=== PATIENT | female | born 1955 | race Caucasian/White ===

== ENCOUNTER 2018-06-01 15:07 | Emergency (ER) | payer BC ==
[2018-06-01 15:18] VITALS: RESP 18
[2018-06-01 15:47] LABS: Basophils % (A) 0 %; Eosinophils # (A) 0.2 k/uL (0-0.7); Eosinophils % (A) 2 %; HGB 16.2 gm/dL (11.4-16.0); Lymphocytes # (A) 1.1 k/uL (1.0-4.8); Lymphocytes % (A) 14 %; MCH 29.8 pg (25.0-35.0); MCHC 33.2 g/dL (31.0-37.0); MCV 89.9 fL (80.0-100.0); Mean Platelet Volume 6.4; Monocytes # (A) 0.4 k/uL (0-1.0); Monocytes % (A) 5 %; Neutrophils # (A) 6.5 k/uL (1.3-7.7); Neutrophils % (A) 78 %; Platelet Count 160 k/uL (150-450); RBC 5.45 m/uL (3.80-5.40); RDW 13.8 % (11.5-15.5); WBC 8.3 k/uL (3.8-10.6)
[2018-06-01 15:49] LABS: Appearance,Urine Clear (Clear); Bilirubin,Urine Negative (Negative); Blood,Urine Negative (Negative); Color,Urine Yellow; Glucose,Urine (UA) Negative (Negative); Ketones,Urine Negative (Negative); Leukocyte Esterase,Urine Negative (Negative); Nitrite,Urine Negative (Negative); PH, Urine 6.5 (5.0-8.0); Protein,Urine Negative (Negative); Specific Gravity,Urine 1.015 (1.001-1.035); Urobilinogen,Urine <2.0 mg/dL (<2.0)
[2018-06-01 16:00] LABS: ALT 81 U/L (9-52); AST 36 U/L (14-36); Albumin 3.6 g/dL (3.5-5.0); Alkaline Phosphatase 64 U/L (38-126); Amylase 67 U/L (30-110); Anion Gap 6 mmol/L; Blood Urea Nitrogen 17 mg/dL (7-17); Calcium 9.3 mg/dL (8.4-10.2); Carbon Dioxide 29 mmol/L (22-30); Chloride 103 mmol/L (98-107); Glucose 119 mg/dL (74-99); Lipase 78 U/L (23-300); Potassium 4.3 mmol/L (3.5-5.1); Sodium 138 mmol/L (137-145); Total Bilirubin 0.7 mg/dL (0.2-1.3); Total Protein 6.3 g/dL (6.3-8.2)
--- NOTE | 2018-06-01 17:42 | ED ---
General Adult HPI - General Chief complaint: Abdominal Pain Stated complaint: poss kidney stone Time Seen by Provider: 06/01/18 17:31 Source: patient, RN notes reviewed Mode of arrival: ambulatory Limitations: no limitations - History of Present Illness Initial comments: Patient 62-year-old female significant past medical history for kidney stones, presented to the emergency room today with a chief complaint of a flank pain to the right side. Patient states that started 3 days ago and this feels similar to kidney stones that she's had in the past. She called her urologist advised to come here to the emergency room. Patient believes that she saw some hematuria a few days ago. She has mid that she's felt nauseated. She currently rates her pain 8/10. Denies any other complaints or symptoms. Patient denies any recent fever, chills, shortness of breath, chest pain, numbness or tingling, dysuria, constipation or diarrhea, headaches or visual changes, or any other complaints. - Related Data Previous Rx's Medication Instructions Recorded Ciprofloxacin HCl [Cipro] 500 mg PO Q12HR #20 day 06/01/18 metroNIDAZOLE [Flagyl] 500 mg PO TID #21 tab 06/01/18 Allergies Allergy/AdvReac Type Severity Reaction Status Date / Time adhesive tape Allergy Unknown Verified 06/01/18 15:18 ibuprofen Allergy Unknown Verified 06/01/18 15:18 iron Allergy Unknown Verified 06/01/18 15:18 Sulfa (Sulfonamide Allergy Unknown Verified 06/01/18 15:18 Antibiotics) Review of Systems ROS Statement: Those systems with pertinent positive or pertinent negative responses have been documented in the HPI. ROS Other: All systems not noted in ROS Statement are negative. Past Medical History Past Medical History: Hyperlipidemia, Thyroid Disorder History of Any Multi-Drug Resistant Organisms: None Reported Past Surgical History: Hernia Repair Additional Past Surgical History / Comment(s): lithotripsy Past Psychological History: No Psychological Hx Reported Smoking Status: Never smoker Past Alcohol Use History: None Reported Past Drug Use History: None Reported General Exam - General Exam Comments Initial Comments: General: The patient is awake and alert, in no distress, and does not appear acutely ill. Eye: Pupils are equal, round and reactive to light, extra-ocular movements are intact. No nystagmus. There is normal conjunctiva bilaterally. No signs of icterus. Ears, nose, mouth and throat: There are moist mucous membranes and no oral lesions. Neck: The neck is supple, there is no tenderness or JVD. Cardiovascular: There is a regular rate and rhythm. No murmur, rub or gallop is appreciated. Respiratory: Lungs are clear to auscultation, respirations are non-labored, breath sounds are equal. No wheezes, stridor, rales, or rhonchi. Gastrointestinal: Soft, non-distended, non-tender abdomen without masses or organomegaly noted. There is no rebound or guarding present. No CVA tenderness. Musculoskeletal: Normal ROM, no tenderness. Strength 5/5. Sensation intact. Pulses equal bilaterally 2+. Neurological: A&O x 3. CN II-XII intact, There are no obvious motor or sensory deficits. Coordination appears grossly intact. Speech is normal. Skin: Skin is warm and dry and no rashes or lesions are noted. Psychiatric: Cooperative, appropriate mood & affect, normal judgment. Limitations: no limitations Course Vital Signs 06/01/18 15:14 Temperature 99.0 F Pulse Rate 84 Respiratory 18 Rate Blood Pressure 140/72 O2 Sat by Pulse 94 L Oximetry Medical Decision Making - Medical Decision Making Patient reexamined at this time shows no signs of distress resting comfortably. Her CT of the abdomen and pelvis does show a nephrolithiasis 3 mm. Does show evidence for sigmoid diverticulitis. Does show possible infiltrate in the left lower lobe. Patient did have upper respiratory infection a week ago. Patient has had some looser stools. Patient will be started on antibiotics of Cipro and Flagyl here in emergency room and discharged home to follow-up with family doctor tomorrow. Advised patient to return if there is any fever or increase worsen symptoms. She states understanding and is in agreement. - Lab Data Result diagrams: 06/01/18 15:37 06/01/18 15:37 Lab Results 06/01/18 06/01/18 06/01/18 Range/Units 15:37 15:37 15:37 WBC 8.3 (3.8-10.6) k/uL RBC 5.45 H (3.80-5.40) m/uL Hgb 16.2 H (11.4-16.0) gm/dL Hct 49.0 H (34.0-46.0) % MCV 89.9 (80.0-100.0) fL MCH 29.8 (25.0-35.0) pg MCHC 33.2 (31.0-37.0) g/dL RDW 13.8 (11.5-15.5) % Plt Count 160 (150-450) k/uL Neutrophils % 78 % Lymphocytes % 14 % Monocytes % 5 % Eosinophils % 2 % Basophils % 0 % Neutrophils # 6.5 (1.3-7.7) k/uL Lymphocytes # 1.1 (1.0-4.8) k/uL Monocytes # 0.4 (0-1.0) k/uL Eosinophils # 0.2 (0-0.7) k/uL Basophils # 0.0 (0-0.2) k/uL Sodium 138 (137-145) mmol/L Potassium 4.3 (3.5-5.1) mmol/L Chloride 103 (98-107) mmol/L Carbon Dioxide 29 (22-30) mmol/L Anion Gap 6 mmol/L BUN 17 (7-17) mg/dL Creatinine 0.80 (0.52-1.04) mg/dL Est GFR (CKD-EPI)AfAm >90 (>60 ml/min/1.73 sqM) Est GFR (CKD-EPI)NonAf 80 (>60 ml/min/1.73 sqM) Glucose 119 H (74-99) mg/dL Calcium 9.3 (8.4-10.2) mg/dL Total Bilirubin 0.7 (0.2-1.3) mg/dL AST 36 (14-36) U/L ALT 81 H (9-52) U/L Alkaline Phosphatase 64 (38-126) U/L Total Protein 6.3 (6.3-8.2) g/dL Albumin 3.6 (3.5-5.0) g/dL Amylase 67 (30-110) U/L Lipase 78 (23-300) U/L Urine Color Yellow Urine Appearance Clear (Clear) Urine pH 6.5 (5.0-8.0) Ur Specific [place] 1.015 (1.001-1.035) Urine Protein Negative (Negative) Urine Glucose (UA) Negative (Negative) Urine Ketones Negative (Negative) Urine Blood Negative (Negative) Urine Nitrite Negative (Negative) Urine Bilirubin Negative (Negative) Urine Urobilinogen <2.0 (<2.0) mg/dL Ur Leukocyte Esterase Negative (Negative) Disposition Clinical Impression: Sigmoid diverticulitis Disposition: HOME SELF-CARE Condition: Good Instructions: Diverticulitis (ED) Additional Instructions: Please use medication as discussed. Please follow-up with family doctor in the next 2 days of symptoms have not improved. Please return to emergency room if the symptoms increase or worsen or for any other concerns. Prescriptions: Ciprofloxacin HCl [Cipro] 500 mg PO Q12HR #20 day metroNIDAZOLE [Flagyl] 500 mg PO TID #21 tab Is patient prescribed a controlled substance at d/c from ED?: No Referrals: Gaudencio Ojeda DO [Primary Care Provider] - 1-2 days Time of Disposition: 18:43
--- NOTE | 2018-06-01 18:24 | CT ---
EXAMINATION TYPE: CT abdomen pelvis wo con DATE OF EXAM: 06/01/2018 COMPARISON: 09/01/2013 HISTORY: Right sided flank pain CT DLP: 566 mGycm Automated exposure control for dose reduction was used. TECHNIQUE: Helical acquisition of images was performed from the lung bases through the pelvis. FINDINGS: There is a 1.5 cm noncalcified nodule in the right lower lobe adjacent to the major fissure. There ar e other smaller nodular densities in the right lower lobe that measure less than 1 cm. There is patch y linear infiltrate at the posterior lung bases. There is no pleural effusion. There is no pericardia l effusion. There is fatty infiltration of the liver. There is 2 cm rounded area of increased density in the late ral right lobe of the liver that could be hemangioma. Spleen appears normal. There is no pancreatic m ass. There calcified gallstones. There is no adrenal mass. Kidneys have normal size and contour. There is no hydronephrosis. There is no retroperitoneal adenopathy. There is inflammatory changes around the mid sigmoid colon with multip le diverticula. There is fat stranding. Bladder distends smoothly. Uterus is anteverted. There is sma ll umbilical hernia that contains fat. There are spondylotic changes in the lumbar spine. There are m ultiple diverticula in the right colon. IMPRESSION: CHOLELITHIASIS. FATTY INFILTRATION OF THE LIVER. INFILTRATES AND ATELECTASIS AT THE LUNG BASES WITH R IGHT LOWER LOBE PULMONARY NODULES. COLONIC DIVERTICULOSIS. THERE IS EVIDENCE OF DIVERTICULITIS IN THE MID SIGMOID COLON THAT IS NEW COMPARED TO OLD EXAM. THERE IS CLEARING OF THE RIGHT RENAL OBSTRUCTION COMPARED TO OLD EXAM. NONOBSTRUCTING SMALL BILATERAL RENAL CALCULI MEASURE UP TO 3 MM.
[2018-06-01] MEDS ORDERED: metroNIDAZOLE 500 MG TAB PO STA (18:43)
[2018-06-01] MEDS ORDERED: CIPROFLOXACIN HCL 500 MG TAB PO STA (18:43)
[2018-06-01 19:09] VITALS: BP 125/66; PULSE 75; TEMP 97
== END 2018-06-01 19:09 | disposition home or self-care (01) ==
LOC: EC 15:07
DX: K57.32 Diverticulitis of large intestine without perforation or abscess without bleeding (principal); N20.0 Calculus of kidney; Z88.2 Allergy status to sulfonamides; Z88.6 Allergy status to analgesic agent; Z91.048 Other nonmedicinal substance allergy status
CPT/HCPCS: 36415; 74176; 80053; 81003; 82150; 83690; 85025; 99284

== ENCOUNTER 2018-09-24 12:04 | Day surgery (SDC) | payer BC ==
[2018-09-18 10:54] VITALS: BMI 29.8
[~2018-09-24 12:04] MED LIST: HYDROmorphone 0.5 MG/0.5 ML SYRINGE IVP PRN
[2018-09-24] MEDS: LIDOCAINE 1% 20 ML VIAL (10MG/ML) FOR IV START INTRADERMA PRN ×2 (12:48→12:52)
[2018-09-24] MEDS: LACTATED RINGERS 1,000 ML IV SCH ×2 (12:48→12:52)
[2018-09-24 13:00] VITALS: TEMP 98.1
[2018-09-24] MEDS ORDERED: PROPOFOL 10 MG/ML 20 ML VIAL IV ONE (13:33)
[2018-09-24] MEDS ORDERED: LIDOCAINE 1% INJ 10MG/ML (20 ML MDV) ONE (13:33)
[2018-09-24] MEDS ORDERED: fentaNYL (PF) 50 MCG/ML 2 ML AMP ONE (13:33)
[2018-09-24 14:19] VITALS: RESP 18
--- NOTE | 2018-09-24 14:25 | P.PCN ---
Date of Procedure: 09/24/18 Description of Procedure: BRIEF HISTORY: Patient is a 62-year-old pleasant female patient with a medical history significant for hypothyroidism who is scheduled for an elective colonoscopy as a part of evaluation of lower abdominal pain and a recent episode of diverticulitis. Per the patient her last colonoscopy was approximately 7 years ago at which time she was told she had diverticular disease. She denies any recent change in bowel habits but did note some blood with wiping after doing the colon prep for this procedure. PROCEDURE PERFORMED: Colonoscopy with polypectomy. PREOPERATIVE DIAGNOSIS: Abdominal pain, diverticulitis. ESTIMATED BLOOD LOSS: Minimal. IV sedation per Anesthesia. PROCEDURE: After informed consent was obtained, the patient, was brought into the endoscopy unit. IV sedation was administered by Anesthesia under continuous monitoring. Digital rectal examination was normal. Initially the Olympus CF- 190 flexible video colonoscope was then inserted in the rectum, gradually advanced into the cecum without any difficulty. Careful examination was performed as the scope was gradually being withdrawn. Ileocecal valve and the appendiceal orifice were visualized and appeared normal. Prep was good. Mucosa of the cecum, ascending colon, transverse colon, descending colon, sigmoid colon , and rectum appeared normal. A small 4 mm descending colon polyp was removed with cold forceps polypectomy. moderate amounts of small and large mouth diverticula were noted in the sigmoid colon, descending colon and transverse. Retroflexion was performed in the rectum and no lesions were seen, internal and external hemorrhoids were noted. The patient tolerated the procedure well. IMPRESSION: Normal-appearing colon from rectum to cecum. Diverticulosis. Descending colon polypectomy. Internal and external hemorrhoids. RECOMMENDATIONS: Findings of this examination were discussed with the patient and her son. Await pathology. Screening colonoscopy in 5-10 years pending pathology. Recommend high-fiber diet.
[2018-09-24 14:34] VITALS: BP 131/70; PULSE 64
== END 2018-09-24 14:49 | disposition home or self-care (01) ==
LOC: ORWHC2ENDO 12:04
PROVIDERS: ATTEND Internal Medicine
DX: K63.5 Polyp of colon (principal); K57.30 Diverticulosis of large intestine without perforation or abscess without bleeding; E03.9 Hypothyroidism, unspecified; E78.49 Other hyperlipidemia; Z87.442 Personal history of urinary calculi; E72.11 Homocystinuria; Z88.6 Allergy status to analgesic agent; Z79.890 Hormone replacement therapy; Z79.899 Other long term (current) drug therapy; Z88.2 Allergy status to sulfonamides; Z91.09 Other allergy status, other than to drugs and biological substances; Z91.048 Other nonmedicinal substance allergy status
CPT/HCPCS: 45380; 88305

== ENCOUNTER → 2020-11-24 | Outpatient (CLI) | payer BC, MEDICARE ==
[2020-11-24 15:13] LABS: African American GFR (CKD) >90 (>60 ml/min/1.73 sqM); Blood Urea Nitrogen 17 mg/dL (7-17); Non-African American GFR(CKD) 80 (>60 ml/min/1.73 sqM)
--- NOTE | 2020-11-24 15:57 | CT ---
EXAMINATION TYPE: CT chest w con DATE OF EXAM: 11/24/2020 COMPARISON: None HISTORY: posterior chest pain CT DLP: 347.8 mGycm Automated exposure control for dose reduction was used. CONTRAST: CT scan of the chest is performed with IV Contrast, patient injected with 100 mL of Isovue 300. FINDINGS: LUNGS: 9 mm of pulmonary nodule well circumscribed right middle lobe adjacent to the fissure. 1.2 cm lobulated pulmonary nodule right upper lobe image 28. 5 mm right lower lobe pulmonary nodule image 40 . 3 mm pulmonary nodule right lower lobe image 35. 4 mm solid nodule left upper lobe image 16 as well as a 2 mm left upper lobe nodule same image. No additional pulmonary nodules are seen. Limited infil trate left lower lobe. MEDIASTINUM: There are no greater than 1 cm hilar or mediastinal lymph nodes. No pericardial effusi on is seen. Thoracic aorta is of normal caliber. The heart is not enlarged. UPPER ABDOMEN: Diffuse hepatic steatosis identified. Hyperdense focus posterior segment right hepatic lobe measuring 1.5 cm. The liver is incompletely imaged. 5 mm calculus mid to upper pole right kidne y. OTHER: Left axillary adenopathy measuring 1.3 cm in short axis. No right-sided adenopathy appreciate d at this time. IMPRESSION: 1. Scattered pulmonary nodules. Metastatic disease is not excluded. 2. Left axillary adenopathy. 3. Fatty liver with a hyperdense lesion anterior segment right hepatic lobe. Dictated CT of the abdom en is recommended.
== END | disposition home or self-care (01) ==
LOC: RADCTMAIN 14:26
PROVIDERS: ATTEND Internal Medicine Critical Care Medicine
DX: C78.00 Secondary malignant neoplasm of unspecified lung (principal); R91.8 Other nonspecific abnormal finding of lung field; R59.0 Localized enlarged lymph nodes; Z91.09 Other allergy status, other than to drugs and biological substances
CPT/HCPCS: 82565; 84520; 71260; 36415; Q9967

== ENCOUNTER → 2020-12-01 | Outpatient (CLI) | payer MEDICARE ==
--- NOTE | 2020-12-03 09:31 | PE ---
Nuclear medicine PET/CT HISTORY: R 91.8, solitary pulmonary nodule, initial Patient received 9.4 mCi F-18 FDG intravenously in delayed scanning was performed from the skull base to the mid thighs. Localization and attenuation correction CT scan was performed. Correlation CT chest dated 11/24/2020, CT abdomen 06/01/2018 Chest and neck: The pulmonary nodules described on CT report are also noted at the right lung base an d right middle lobe on the CT abdomen from 2018 and again noted on today's PET/CT, no associated hype rmetabolic uptake. Similarly left upper lobe 3 mm nodule is compared to prior CT at shows no uptake. There is no pleural or pericardial effusion. There is no mediastinal, right axillar, or hilar adenopa thy. No cervical or supraclavicular adenopathy. There is a left axillary node adjacent to the chest wall just caudal to the subclavian vasculature me asuring 13 mm in short axis and showing associated hypermetabolic uptake. Abdomen: Liver shows low attenuation likely due to hepatic steatosis, focal area of increased attenua tion within the right lobe is again noted dated -2017 and possibly representing some focal sparing , no suspicious uptake. Gallbladder shows some dependent high density consistent with small stones. T here is no adrenal mass or retroperitoneal adenopathy. Pancreas is fatty replaced. There is no ascite s. Extensive diverticular change associated with the colon. Right inguinal hernia contains fat. Osseous structures show no suspicious hypermetabolic uptake. IMPRESSION: Suspect the pulmonary nodules are benign, there are stable dating greater than 2 years. T here is a hypermetabolic lymph node in the left axilla with some mild enlargement. Correlate for any relevant clinical history such as possibly prior vaccine administration, follow-up suggested.
== END ==
LOC: RADPETMAIN 13:58
PROVIDERS: ATTEND Internal Medicine Critical Care Medicine
DX: R91.8 Other nonspecific abnormal finding of lung field (principal); R59.9 Enlarged lymph nodes, unspecified
CPT/HCPCS: 78815; A9552

== ENCOUNTER 2023-02-23 20:10 | Emergency (ER) | payer MEDICARE ==
[2023-02-23] MEDS ORDERED: SODIUM CHLORIDE 0.9% 1,000 ML IV STA (20:50)
[2023-02-23] MEDS ORDERED: KETOROLAC 15 MG/ML 1 ML VIAL IVP STA (20:50)
[2023-02-23 20:51] LABS: Appearance,Urine Turbid (Clear); Bacteria,Urine Moderate /hpf; Bilirubin,Urine Negative (Negative); Blood,Urine Large (Negative); Color,Urine Yellow; Glucose,Urine (UA) Negative (Negative); Ketones,Urine Trace (Negative); Leukocyte Esterase,Urine Large (Negative); Mucus,Urine Many /hpf; Nitrite,Urine Positive (Negative); PH, Urine 5.5 (5.0-8.0); Protein,Urine 2+ (Negative); RBC,Urine >182 /hpf (0-5); Specific Gravity,Urine 1.023 (1.001-1.035); Squamous Epithelial Cell,Urine 8 /hpf (0-4); Urobilinogen,Urine <2.0 mg/dL (<2.0); WBC,Urine >182 /hpf (0-5)
[2023-02-23 21:19] LABS: Basophils % (A) 0 %; Eosinophils # (A) 0.1 k/uL (0-0.7); Eosinophils % (A) 1 %; HCT 40.1 % (34.0-46.0); HGB 13.8 gm/dL (11.4-16.0); Lymphocytes # (A) 0.8 k/uL (1.0-4.8); Lymphocytes % (A) 9 %; MCH 29.7 pg (25.0-35.0); MCHC 34.6 g/dL (31.0-37.0); MCV 85.9 fL (80.0-100.0); Mean Platelet Volume 6.9; Monocytes # (A) 0.4 k/uL (0-1.0); Monocytes % (A) 5 %; Neutrophils # (A) 7.8 k/uL (1.3-7.7); Neutrophils % (A) 84 %; Platelet Count 145 k/uL (150-450); RBC 4.67 m/uL (3.80-5.40); WBC 9.2 k/uL (3.8-10.6)
[2023-02-23 21:30] LABS: ALT 22 U/L (4-34); AST 25 U/L (14-36); African American GFR (CKD) >90 (>60 ml/min/1.73 sqM); Albumin 3.6 g/dL (3.5-5.0); Alkaline Phosphatase 66 U/L (38-126); Anion Gap 10 mmol/L; Blood Urea Nitrogen 18 mg/dL (7-17); Carbon Dioxide 23 mmol/L (22-30); Chloride 101 mmol/L (98-107); Glucose 101 mg/dL (74-99); Non-African American GFR(CKD) >90 (>60 ml/min/1.73 sqM); Potassium 3.7 mmol/L (3.5-5.1); Sodium 134 mmol/L (137-145); Total Bilirubin 1.3 mg/dL (0.2-1.3); Total Protein 6.1 g/dL (6.3-8.2)
--- NOTE | 2023-02-23 22:15 | US ---
EXAMINATION TYPE: US kidneys/renal and bladder DATE OF EXAM: 02/23/2023 COMPARISON: CT PET 12/01/2020. CLINICAL INDICATION: Female, 67 years old with history of flank pain; Right flank pain. Hx of kidney stones. EXAM MEASUREMENTS: Right Kidney: 13.0 x 5.6 x 6.0 cm Left Kidney: 11.8 x 5.7 x 5.4 cm Right Kidney: Moderate right hydronephrosis. No discrete obstructing lesion. Kidney appears enlarged. Left Kidney: No hydronephrosis or masses seen Bladder: Appears wnl Bilateral Jets seen: Not seen during exam. IMPRESSION: 1. Moderate right hydronephrosis. 2. Left kidney is normal in appearance.
[2023-02-23] MEDS ORDERED: CIPROFLOXACIN HCL 500 MG TAB PO STA ×2 (22:34)
--- NOTE | 2023-02-23 22:36 | ED ---
Abdominal Pain HPI - General Chief Complaint: Abdominal Pain Stated Complaint: right side pain Time Seen by Provider: 02/23/23 20:44 Source: patient, RN notes reviewed Mode of arrival: ambulatory Limitations: no limitations - History of Present Illness Initial Comments: Patient is a 67-year-old male presenting to the emergency room with complaints of right flank pain that has been intermittent for the last week with increase in intensity today. She also reports increasing urinary frequency and dysuria. She denies any chest pain, shortness of breath abdominal pain, left- sided flank pain, or chills. She states that she took Tylenol for her pain with some relief. She reports a known history of nephrolithiasis with previous lithotripsy. In addition to her renal stone history she has a past medical history significant for hypothyroidism, hyperlipidemia and diverticulosis. - Related Data Home Medications Medication Instructions Recorded Confirmed Atorvastatin [Lipitor] 10 mg PO Q3D 09/18/18 09/24/18 Folic Acid 0.4 mg PO DAILY 09/18/18 09/24/18 Levothyroxine Sodium [Synthroid] 125 mcg PO DAILY 09/18/18 09/24/18 Multivitamins, Thera [Multivitamin 1 tab PO DAILY 09/18/18 09/24/18 (formulary)] Previous Rx's Medication Instructions Recorded Ciprofloxacin HCl [Cipro] 500 mg PO BID 5 Days #10 tab 02/23/23 Ketorolac [Toradol] 10 mg PO Q8H PRN 5 Days #15 tab 02/24/23 Allergies Allergy/AdvReac Type Severity Reaction Status Date / Time adhesive tape Allergy red skin, Verified 02/23/23 20:17 blisters ibuprofen Allergy Swelling Verified 02/23/23 20:17 Sulfa (Sulfonamide Allergy Swelling Verified 02/23/23 20:17 Antibiotics) iron AdvReac Abdominal Verified 02/23/23 20:17 Pain Review of Systems ROS Statement: Those systems with pertinent positive or pertinent negative responses have been documented in the HPI. ROS Other: All systems not noted in ROS Statement are negative. Past Medical History Past Medical History: Hyperlipidemia, Thyroid Disorder Additional Past Medical History / Comment(s): varicose veins, kidney stones, recent diverticulitis, genetic predisposition to developing blood clots- hyperhomocysteinemia History of Any Multi-Drug Resistant Organisms: None Reported Past Surgical History: Hernia Repair, Joint Replacement Additional Past Surgical History / Comment(s): lithotripsy, right knee replaced, colonoscopy Past Anesthesia/Blood Transfusion Reactions: Family History of Problems w/ Anesthesia Additional Past Anesthesia/Blood Transfusion Reaction / Comment(s): mom very slow to wake up Past Psychological History: No Psychological Hx Reported Smoking Status: Never smoker Past Alcohol Use History: Rare Past Drug Use History: None Reported - Past Family History Mother Family Medical History: Vascular Disorder General Exam Limitations: no limitations General appearance: alert, in no apparent distress Head exam: Present: atraumatic, normocephalic, normal inspection Eye exam: Present: normal appearance, PERRL, EOMI. Absent: scleral icterus, conjunctival injection, periorbital swelling ENT exam: Present: normal exam, mucous membranes moist Neck exam: Present: normal inspection, full ROM Respiratory exam: Present: normal lung sounds bilaterally. Absent: respiratory distress, wheezes, rales, rhonchi, stridor Cardiovascular Exam: Present: regular rate, normal rhythm, normal heart sounds. Absent: systolic murmur, diastolic murmur, rubs, gallop, clicks GI/Abdominal exam: Present: soft, normal bowel sounds. Absent: distended, tenderness, guarding, rebound, rigid Extremities exam: Present: normal inspection. Absent: pedal edema, joint swelling Back exam: Present: CVA tenderness (R). Absent: CVA tenderness (L) Neurological exam: Present: alert, oriented X3, CN II-XII intact Psychiatric exam: Present: normal affect, normal mood Skin exam: Present: warm, dry, intact, normal color. Absent: rash Course Vital Signs 02/23/23 02/23/23 02/24/23 20:14 23:05 02:06 Temperature 98.1 F 97 F L Pulse Rate 79 60 78 Respiratory 20 16 18 Rate Blood Pressure 142/73 118/50 118/79 O2 Sat by Pulse 97 98 98 Oximetry Medical Decision Making - Medical Decision Making Was pt. sent in by a medical professional or institution (, PA, CONSULTING UTILITY FORESTER, urgent care, hospital, or correction...) When possible be specific @ -No Did you speak to anyone other than the patient for history (EMS, parent, family, police, friend...)? What history was obtained from this source @ -No Did you review nursing and triage notes (agree or disagree)? Why? @ -I reviewed and agree with nursing and triage notes Were old charts reviewed (outside hosp., previous admission, EMS record, old EKG, old radiological studies, urgent care reports/EKG's, correction records)? Report findings @ -No old charts were reviewed Differential Diagnosis (chest pain, altered mental status, abdominal pain women, abdominal pain men, vaginal bleeding, weakness, fever, dyspnea, syncope, headache, dizziness, GI bleed, back pain, seizure, CVA, palpatations, mental health, musculoskeletal)? @ -Differential Back Pain: Strain, zoster, cauda equina syndrome, epidural abscess, vertebral osteomyelitis, discitis, fracture, subluxation, disc herniation, DJD, spinal stenosis, dissection, AAA, pancreatitis, peptic ulcer disease, pyelonephritis, kidney stone, this is not meant to be an all-inclusive list. EKG interpreted by me (3pts min.). @ -None done X-rays interpreted by me (1pt min.). @ -None done CT interpreted by me (1pt min.). @ -CT abdomen and pelvis without contrast: Severe right hydronephrosis and hyd roureter due to 7 mm right urethral calculi, mild left hydronephrosis and nonobstructing left renal calculi. U/S 1pt. min.). @ -Ultrasound kidney renal bladder not interpreted by me demonstrates report per radiologist. Moderate right-sided hydronephrosis with no identified obstructive stone. What testing was considered but not performed or refused? (CT, X-rays, U/S, labs)? Why? @ -None What meds were considered but not given or refused? Why? @ -None Did you discuss the management of the patient with other professionals (professionals i.e. , PA, CONSULTING UTILITY FORESTER, lab, RT, psych nurse, social media specialist, ship liner, teacher, security vehicle patrol officer, bilingual case manager)? Give summary @ -Yes, spoke with urologist purification operator helper regarding patient's presentation and workup. He advised may discharge home on oral antibiotics with culture of urine to be completed and follow-up with urology. Was smoking cessation discussed for >3mins.? @ -No Was critical care preformed (if so, how long)? @ -No Were there social determinants of health that impacted care today? How? (Homelessness, low income, unemployed, alcoholism, drug addiction, transportation, low edu. Level, literacy, decrease access to med. care, fci, rehab)? @ -No Was there de-escalation of care discussed even if they declined (Discuss DNR or withdrawal of care, Hospice)? DNR status @ -No What co-morbidities impacted this encounter? (DM, HTN, Smoking, COPD, CAD, Cancer, CVA, ARF, Chemo, Hep., AIDS, mental health diagnosis, sleep apnea, mor bid obesity)? @ -None Was patient admitted / discharged? Hospital course, mention meds given and route, prescriptions, significant lab abnormalities, going to OR and other pertinent info. @ -67-year-old female presenting to the emergency room complaints of intermittent right flank pain with known history of renal stones along with urinary frequency and dysuria. Will start workup for flank pain with urinalysis with reflex to culture, CBC, CMP along with ultrasound of kidneys and bladder. Will give IV hydration 1 L IV fluids along with Toradol for pain. Laboratory studies reveal low blood count 145 no leukocytosis, neutrophils slightly elevated at 7.8 low lymphocytes 0.8 no other abnormalities on CBC. CMP with elevated BUN 18 normal creatinine sodium low 134 all remaining electrolytes normal. Liver function normal. Urinalysis with moderate bacteria greater than 182 RBC and WBC is positive for nitrates large blood ketones and protein. Ultrasound shows moderate right-sided hydronephrosis. Pain improved with hydration and Toradol. Findings and presentation discussed with my attending Dr. King who recommended computed tomography scan and consult to urology. Computed tomography scan completed demonstrating severe hydronephrosis and hydroureter with 7 mm distal ureteral stone. With Dr. Dash purification operator helper for urology regarding patient's diagnostic imaging, laboratory studies and medications today. He advised in the absence of fever, tachycardia, or leukocytosis if pain controlled stable for discharge home on oral antibiotic therapy with follow-up in the office with urology. Patient is agreeable to this plan. Pain has returned while waiting for computed tomography scan additional dose of Toradol given with improvement in symptoms. Oral Cipro started here in the emergency room and additional oral dose given to take home due to current holiday status. We'll discharge patient home in stable condition on oral antibiotic therapy for urinary tract infection advising follow-up with urology for right-sided hydron ephrosis due to obstructive renal calculi. Undiagnosed new problem with uncertain prognosis? @ -No Drug Therapy requiring intensive monitoring for toxicity (Heparin, Nitro, Insulin, Cardizem)? @ -No Were any procedures done? @ -No Diagnosis/symptom? @ -UTI Acute, or Chronic, or Acute on Chronic? @ -Acute Uncomplicated (without systemic symptoms) or Complicated (systemic symptoms)? @ -Uncomplicated Side effects of treatment? @ -No Exacerbation, Progression, or Severe Exacerbation? @ -No Poses a threat to life or bodily function? How? (Chest pain, [place], [place], pneumonia, PE, COPD, DKA, ARF, appy, cholecystitis, CVA, Diverticulitis, Homicidal, Suicidal, threat to staff... and all critical care pts) @ -No Diagnosis/symptom? @ -Right hydronephrosis and hydroureter secondary to obstructive renal calculi Acute, or Chronic, or Acute on Chronic? @ -Acute Uncomplicated (without systemic symptoms) or Complicated (systemic symptoms)? @ -Uncomplicated Side effects of treatment? @ -none Exacerbation, Progression, or Severe Exacerbation] @ -no Poses a threat to life or bodily function? @ -no Case discussed with Dr. King. - Lab Data Result diagrams: 02/23/23 21:06 02/23/23 21:06 Lab Results 02/23/23 02/23/23 02/23/23 Range/Units 20:39 21:06 21:06 WBC 9.2 (3.8-10.6) k/uL RBC 4.67 (3.80-5.40) m/uL Hgb 13.8 (11.4-16.0) gm/dL Hct 40.1 (34.0-46.0) % MCV 85.9 (80.0-100.0) fL MCH 29.7 (25.0-35.0) pg MCHC 34.6 (31.0-37.0) g/dL RDW 13.0 (11.5-15.5) % Plt Count 145 L (150-450) k/uL MPV 6.9 Neutrophils % 84 % Lymphocytes % 9 % Monocytes % 5 % Eosinophils % 1 % Basophils % 0 % Neutrophils # 7.8 H (1.3-7.7) k/uL Lymphocytes # 0.8 L (1.0-4.8) k/uL Monocytes # 0.4 (0-1.0) k/uL Eosinophils # 0.1 (0-0.7) k/uL Basophils # 0.0 (0-0.2) k/uL Sodium 134 L (137-145) mmol/L Potassium 3.7 (3.5-5.1) mmol/L Chloride 101 (98-107) mmol/L Carbon Dioxide 23 (22-30) mmol/L Anion Gap 10 mmol/L BUN 18 H (7-17) mg/dL Creatinine 0.68 (0.52-1.04) mg/dL Est GFR (CKD-EPI)AfAm >90 (>60 ml/min/1.73 sqM) Est GFR (CKD-EPI)NonAf >90 (>60 ml/min/1.73 sqM) Glucose 101 H (74-99) mg/dL Plasma Lactic Acid Jonas (0.7-2.0) mmol/L Calcium 9.0 (8.4-10.2) mg/dL Total Bilirubin 1.3 (0.2-1.3) mg/dL AST 25 (14-36) U/L ALT 22 (4-34) U/L Alkaline Phosphatase 66 (38-126) U/L Total Protein 6.1 L (6.3-8.2) g/dL Albumin 3.6 (3.5-5.0) g/dL Urine Color Yellow Urine Appearance Turbid H (Clear) Urine pH 5.5 (5.0-8.0) Ur Specific [place] 1.023 (1.001-1.035) Urine Protein 2+ H (Negative) Urine Glucose (UA) Negative (Negative) Urine Ketones Trace H (Negative) Urine Blood Large H (Negative) Urine Nitrite Positive H (Negative) Urine Bilirubin Negative (Negative) Urine Urobilinogen <2.0 (<2.0) mg/dL Ur Leukocyte Esterase Large H (Negative) Urine RBC >182 H (0-5) /hpf Urine WBC >182 H (0-5) /hpf Ur Squamous Epith Cells 8 H (0-4) /hpf Urine Bacteria Moderate H (None) /hpf Urine Mucus Many H (None) /hpf 02/23/23 Range/Units 21:06 WBC (3.8-10.6) k/uL RBC (3.80-5.40) m/uL Hgb (11.4-16.0) gm/dL Hct (34.0-46.0) % MCV (80.0-100.0) fL MCH (25.0-35.0) pg MCHC (31.0-37.0) g/dL RDW (11.5-15.5) % Plt Count (150-450) k/uL MPV Neutrophils % % Lymphocytes % % Monocytes % % Eosinophils % % Basophils % % Neutrophils # (1.3-7.7) k/uL Lymphocytes # (1.0-4.8) k/uL Monocytes # (0-1.0) k/uL Eosinophils # (0-0.7) k/uL Basophils # (0-0.2) k/uL Sodium (137-145) mmol/L Potassium (3.5-5.1) mmol/L Chloride (98-107) mmol/L Carbon Dioxide (22-30) mmol/L Anion Gap mmol/L BUN (7-17) mg/dL Creatinine (0.52-1.04) mg/dL Est GFR (CKD-EPI)AfAm (>60 ml/min/1.73 sqM) Est GFR (CKD-EPI)NonAf (>60 ml/min/1.73 sqM) Glucose (74-99) mg/dL Plasma Lactic Acid Jonas 0.9 (0.7-2.0) mmol/L Calcium (8.4-10.2) mg/dL Total Bilirubin (0.2-1.3) mg/dL AST (14-36) U/L ALT (4-34) U/L Alkaline Phosphatase (38-126) U/L Total Protein (6.3-8.2) g/dL Albumin (3.5-5.0) g/dL Urine Color Urine Appearance (Clear) Urine pH (5.0-8.0) Ur Specific [place] (1.001-1.035) Urine Protein (Negative) Urine Glucose (UA) (Negative) Urine Ketones (Negative) Urine Blood (Negative) Urine Nitrite (Negative) Urine Bilirubin (Negative) Urine Urobilinogen (<2.0) mg/dL Ur Leukocyte Esterase (Negative) Urine RBC (0-5) /hpf Urine WBC (0-5) /hpf Ur Squamous Epith Cells (0-4) /hpf Urine Bacteria (None) /hpf Urine Mucus (None) /hpf - Radiology Data Radiology results: report reviewed, image reviewed Disposition Clinical Impression: UTI (urinary tract infection), Hydronephrosis of right kidney, Right nephrolithiasis Disposition: HOME SELF-CARE Condition: Stable Instructions (If sedation given, give patient instructions): Kidney Stones (ED), Urinary Tract Infection in Women (ED) Additional Instructions: Please stay well hydrated. Utilize tramadol starter pack for pain as needed. Oral Toradol also sent in to your pharmacy may utilize for pain as well do not take other NSAIDs while taking Toradol. Complete course of antibiotic as prescribed. Please follow-up with your urologist and primary care provider. Please return to the Emergency Department if symptoms worsen or any other concerns. Prescriptions: Ciprofloxacin HCl [Cipro] 500 mg PO BID 5 Days #10 tab Ketorolac [Toradol] 10 mg PO Q8H PRN 5 Days #15 tab PRN Reason: Pain Is patient prescribed a controlled substance at d/c from ED?: No Referrals: Gaudencio Ojeda DO [Primary Care Provider] - 1-2 days Rajeev Long MD [STAFF PHYSICIAN] - 1-2 days Time of Disposition: 01:53
[2023-02-23] MEDS ORDERED: CIPROFLOXACIN HCL 500 MG TAB PO ONE (22:45)
[2023-02-23 23:06] VITALS: TEMP 97
--- NOTE | 2023-02-24 01:34 | CT ---
EXAM: CT Abdomen and Pelvis Without Intravenous Contrast CLINICAL HISTORY: ITS.REASON CT Reason: flank pain hydronephrosis TECHNIQUE: Axial computed tomography images of the abdomen and pelvis without intravenous contrast. CTDI is 9.4 mGy and DLP is 521.9 mGy-cm. This CT exam was performed using one or more of the following dose reduction techniques: automated exposure control, adjustment of the mA and/or kV according to patient size, and/or use of iterative reconstruction technique. COMPARISON: 06/01/2018 FINDINGS: Lung bases: 1.0 cm pulmonary nodule in the right middle lobe minimally increased in size compared to prior study of 06/01/2018 where it measures 0. 8 cm. Overall this is a benign growth rate. 0.5 cm pulmonary nodule in the lateral right lung base stable from prior exam. No new or enlarging pulmonary nodules are identified in the lung bases. ABDOMEN: Liver: 1.1 cm simple cyst in the lateral left lobe of the liver. Gallbladder and bile ducts: Small layering gallstones. No ductal dilation. Pancreas: Unremarkable. No ductal dilation. Spleen: Unremarkable. No splenomegaly. Adrenals: Unremarkable. No mass. Kidneys and ureters: 0.7 cm distal right ureteral calculus at the distal sacral level causing severe hydronephrosis and hydroureter. Mild left hydronephrosis of unclear etiology. 0.2 cm nonobstructing left lower pole renal calculus. Stomach and bowel: Severe sigmoid diverticulosis without evidence of diverticulitis. No obstruction. PELVIS: Appendix: No findings to suggest acute appendicitis. Bladder: Unremarkable. No stones. Reproductive: Unremarkable as visualized. ABDOMEN and PELVIS: Intraperitoneal space: Unremarkable. No free air. No significant fluid collection. Bones/joints: No acute fracture. No dislocation. Soft tissues: Right inguinal hernia with fat protruding through the defect. Vasculature: Unremarkable. No abdominal aortic aneurysm. Lymph nodes: Unremarkable. No enlarged lymph nodes. IMPRESSION: 1. 0.7 cm distal right ureteral calculus at the distal sacral level causing severe hydronephrosis and hydroureter. 2. Mild left hydronephrosis of unclear etiology. 3. 0.2 cm nonobstructing left lower pole renal calculus. 4. Cholelithiasis. 5. Right inguinal hernia.
[2023-02-24] MEDS ORDERED: traMADol 50 MG STARTER PACK 3 TAB BTL PO STA (01:50)
[2023-02-24] MEDS ORDERED: KETOROLAC 15 MG/ML 1 ML VIAL IVP STA (01:50)
[2023-02-24 02:07] VITALS: BP 118/79; PULSE 78; RESP 18
== END 2023-02-24 02:10 | disposition home or self-care (01) ==
LOC: EC 20:10
DX: N13.2 Hydronephrosis with renal and ureteral calculous obstruction (principal); N39.0 Urinary tract infection, site not specified; E78.5 Hyperlipidemia, unspecified; E03.9 Hypothyroidism, unspecified; Z88.2 Allergy status to sulfonamides; Z88.6 Allergy status to analgesic agent; Z91.048 Other nonmedicinal substance allergy status; Z91.09 Other allergy status, other than to drugs and biological substances; Z79.890 Hormone replacement therapy; Z79.899 Other long term (current) drug therapy
CPT/HCPCS: 36415; 80053; 83605; 85025; 81001; 87086; 87077; 87186; 76770; 74176; 99284; 96374; 96376; 96361; J1885 ×2

== ENCOUNTER 2023-03-17 08:29 | Day surgery (SDC) | payer MEDICARE ==
--- NOTE | 2023-03-16 12:39 | P.GSHP ---
History of Present Illness H&P Date: 03/16/23 Chief Complaint: Right renal colic The patient is a 67-year-old white female with a history of recurrent urolithiasis. She recently experienced right flank pain. Her evaluation consisted of a CT scan of the abdomen and pelvis, which revealed marked right hydroureteronephrosis due to a 7 mm right distal ureteral calculus. She underwent right ureteral stent insertion on 02/26/2023. She was also treated for an E. coli UTI. She now comes for cystoscopy, right ureteral stent removal, right ureteroscopy with Holmium laser lithotripsy and stone basketing. - Constitutional Constitutional: Denies chills, Denies fever - Genitourinary (Female) Genitourinary: Reports flank pain, Reports kidney stones Past Medical History Past Medical History: Deep Vein Thrombosis (DVT), Hyperlipidemia, Thyroid Disorder, Vascular Disorder Additional Past Medical History / Comment(s): varicose veins, kidney stones, recent diverticulitis, genetic predisposition to developing blood clots- hyperhomocysteinemia History of Any Multi-Drug Resistant Organisms: None Reported Past Surgical History: Hernia Repair, Joint Replacement Additional Past Surgical History / Comment(s): lithotripsy, lesly knee replaced, colonoscopy D & C Past Anesthesia/Blood Transfusion Reactions: Family History of Problems w/ Anesthesia Additional Past Anesthesia/Blood Transfusion Reaction / Comment(s): mom very slow to wake up Smoking Status: Never smoker - Past Family History Mother Family Medical History: Vascular Disorder Medications and Allergies Home Medications Medication Instructions Recorded Confirmed Type Atorvastatin [Lipitor] 10 mg PO Q3D 09/18/18 03/13/23 History Levothyroxine Sodium [Synthroid] 125 mcg PO DAILY 09/18/18 03/13/23 History Multivitamins, Thera [Multivitamin 1 tab PO DAILY 09/18/18 03/13/23 History (formulary)] Fiber Caplets(Unk) 1 tab PO DAILY 03/13/23 03/13/23 History Greentea Extract (Unk) 1 tab PO DAILY 03/13/23 03/13/23 History Methyl Folic(Unk) 1 tab PO DAILY 03/13/23 03/13/23 History Milk Thistle Extract(Unk) 1 tab PO DAILY 03/13/23 03/13/23 History Vit D3 1,000 units PO DAILY 03/13/23 03/13/23 History Allergies Allergy/AdvReac Type Severity Reaction Status Date / Time adhesive tape Allergy red skin, Verified 03/13/23 08:06 blisters ibuprofen Allergy Swelling Verified 03/13/23 08:06 Sulfa (Sulfonamide Allergy Swelling Verified 03/13/23 08:06 Antibiotics) iron AdvReac Abdominal Verified 03/13/23 08:06 Pain Surgical - Exam - General well developed, well nourished, no distress - Respiratory normal respiratory effort - Abdomen Abdomen: soft, non tender, no guarding, no rigid, no rebound - Genitourinary normal external genitalia - Psychiatric oriented to time, oriented to person, oriented to place, speech is normal, memory intact Results - Imaging CT scan - abdomen: report reviewed, image reviewed Assessment and Plan (1) Calculus of ureter Status: Acute Code(s): N20.1 - CALCULUS OF URETER SNOMED Code(s): 41065851 Plan: Recent urine culture has confirmed resolution of the UTI. Cystoscopy, right ur eteral stent removal, right ureteroscopy with Holmium laser lithotripsy and possible stone basketing will be performed. The procedure has been reviewed in detail with the patient. She is aware of potential risks, which include anesthesia, bleeding, infection, inability to successfully remove the calculus, and ureteral injury.
[~2023-03-17 08:29] MED LIST changes: +DEXAMETHASONE SOD PHOSPHATE 4 MG/ML 1 ML VIAL IV ONE; +LACTATED RINGERS 1,000 ML IV SCH; +LIDOCAINE 1% (10MG/ML) FOR IV START INTRADERMA PRN; +ONDANSETRON 4 MG/2 ML VIAL IVP ONE; +droPERidol 5 MG/2 ML VIAL IVP ONE
--- NOTE | 2023-03-17 08:51 | XR ---
EXAMINATION TYPE: XR KUB DATE OF EXAM: 03/17/2023 HISTORY: Pain Comparison: 12/02/2022 Single KUB is submitted for interpretation. Findings: Right renal calculi: Calculus at the lower pole right kidney measuring 2.7 mm. Right ureteral calculi: Right ureteral stent is noted to be in place. What appear to be 2 calculi ar e noted along the stent at the mid sacral level measuring approximately 2.5 mm and 2.3 mm respectivel y. Left renal calculi: Limited evaluation of the left kidney given overlying bowel content. Tiny calcul i difficult to exclude. Left ureteral calculi: None Visualized. Pelvic calcifications: None Visualized. Bowel gas pattern is unremarkable. No free air. No mass effects. IMPRESSION: 1. Right ureteral stent. 2.What appear to be 2 calculi are noted along the stent at the mid sacral level measuring approximate ly 2.5 mm and 2.3 mm respectively.
[2023-03-17] MEDS ORDERED: NEOSTIGMINE 1 MG/ML 10 ML VIAL ONE (10:03)
[2023-03-17] MEDS ORDERED: LIDOCAINE 2% INJ 20 MG/ML (2 ML VIAL) ONE (10:03)
[2023-03-17] MEDS ORDERED: ROCURONIUM 10 MG/ML (5 ML VIAL) IV ONE (10:03)
[2023-03-17] MEDS ORDERED: fentaNYL (PF) 50 MCG/ML 2 ML AMP ONE (10:03)
[2023-03-17] MEDS ORDERED: SUCCINYLCHOLINE CHLORIDE 200 MG/10 ML VIAL IV ONE (10:03)
[2023-03-17] MEDS ORDERED: PROPOFOL 10 MG/ML 20 ML VIAL IV ONE (10:03)
[2023-03-17] MEDS ORDERED: MIDAZOLAM 2 MG/2 ML VIAL ONE (10:03)
[2023-03-17] MEDS ORDERED: GLYCOPYRROLATE 0.2 MG/ML 2 ML VIAL ONE (10:03)
--- NOTE | 2023-03-17 11:10 | P.OP ---
Date of Procedure: 03/17/23 Preoperative Diagnosis: Right ureteral calculus Postoperative Diagnosis: Same Procedure(s) Performed: Cystoscopy, right ureteral stent removal, right ureteroscopy with Holmium laser lithotripsy and stone basketing Anesthesia: [place] Surgeon: Rajeev Long Estimated Blood Loss (ml): 5 IV fluids (ml): 200 Pathology: other (Stone fragments, sent for chemical analysis) Condition: stable Disposition: PACU Indications for Procedure: The patient is a 67-year-old white female with a history of recurrent urolithiasis. She recently experienced right flank pain. Her evaluation consisted of a CT scan of the abdomen and pelvis, which revealed marked right hydroureteronephrosis due to a 7 mm right distal ureteral calculus. She underwent right ureteral stent insertion on 02/26/2023. She was also treated for an E. coli UTI. She now comes for cystoscopy, right ureteral stent removal, right ureteroscopy with Holmium laser lithotripsy and stone basketing. Operative Findings: Impacted right distal ureteral calculus, fragmented and removed completely. Description of Procedure: The patient was taken to the operating room and placed in the dorsolithotomy position, with legs supported in Sam stirrups. The external genitalia was prepped and draped sterilely. The 30 lens was used to introduce the 21-Czech Jones cystoscopic sheath through the urethra and into the bladder under direct vision. The bladder was examined in its entirety. No abnormalities were seen. Grasping forceps were used to grasp the distal end of the right ureteral stent, which was removed along with the cystoscope. The Jones semirigid ureteroscope was advanced into the bladder, and the right ureteral orifice was cannulated. The ureteroscope was slowly advanced under direct vision, up to the calculus which with the level of the iliac vessels. The 272 micron Holmium laser probe was passed through the ureteroscope, and lithotripsy was performed. After fragmenting the calculus, a 0 tip basket was used to remove all calculus fragments. These were saved and sent for chemical analysis. Final inspection of the ureter showed some edema where the calculus had been impacted. There was no evidence of ureteral perforation. The bladder was emptied and the cystoscope removed. The patient tolerated the procedure well and was taken to the recovery room in stable condition. [facility] [place] Report: Procedure Acuity: Elective Stone Size and Location: 7 mm, right distal ureter Ureteral Dilation: No Ureteral Access Sheath Used: No Stone Sent for Analysis: Yes All Stones/Fragments Were Removed with a Basket: Yes Complications: No Preoperative Antibiotics Given: Yes Stent Placed: No Discharge Medications:
[2023-03-17 11:13] VITALS: TEMP 97.1
[2023-03-17 12:29] VITALS: BP 166/76; PULSE 62; RESP 18
[2023-03-17] MEDS ORDERED: ACETAMINOPHEN TAB 325 MG TAB ONE (12:47)
[2023-03-17] MEDS ORDERED: ACETAMINOPHEN TAB 325 MG TAB PO ONE (12:49)
== END 2023-03-17 12:58 | disposition home or self-care (01) ==
LOC: OR 08:29
PROVIDERS: ATTEND Urology
DX: N20.1 Calculus of ureter (principal); Z87.440 Personal history of urinary (tract) infections; E78.5 Hyperlipidemia, unspecified; E03.9 Hypothyroidism, unspecified; E72.11 Homocystinuria; Z86.718 Personal history of other venous thrombosis and embolism; Z87.19 Personal history of other diseases of the digestive system; Z79.899 Other long term (current) drug therapy; Z79.890 Hormone replacement therapy; I83.90 Asymptomatic varicose veins of unspecified lower extremity; Z98.890 Other specified postprocedural states; Z88.2 Allergy status to sulfonamides; Z88.6 Allergy status to analgesic agent; Z91.048 Other nonmedicinal substance allergy status
CPT/HCPCS: 82365; 74018; 52353; C1758 ×3; C1769; C1894; J2250; J0330; J1100; J2710; J0690; J2405; J3010; J2704; J2001

== ENCOUNTER → 2023-04-29 | Outpatient (CLI) | payer MEDICARE ==
--- NOTE | 2023-04-29 17:22 | US ---
EXAMINATION TYPE: US kidneys/renal and bladder DATE OF EXAM: 04/29/2023 COMPARISON: 02/23/2023 CLINICAL INDICATION: Female, 67 years old with history of N20.1 CALCULUS OF URETER; Hx of stones. EXAM MEASUREMENTS: Right Kidney: 9.6 x 4.6 x 3.9 cm Left Kidney: 10.1 x 4.4 x 4.5 cm Right Kidney: Some pelviectasis remains. No calyceal dilatation to suggest hydronephrosis. Left Kidney: No hydronephrosis or masses seen Bladder: wnl Bilateral Jets seen: Yes IMPRESSION: Improvement in the previous right-sided hydronephrosis. There is residual pelviectasis. Consider phuong tional follow-up to ensure complete resolution.
== END | disposition home or self-care (01) ==
LOC: RADUSWWP 10:08
PROVIDERS: ATTEND Urology
DX: N13.2 Hydronephrosis with renal and ureteral calculous obstruction (principal); N28.89 Other specified disorders of kidney and ureter; Z87.442 Personal history of urinary calculi
CPT/HCPCS: 76770

== ENCOUNTER → 2023-05-27 | Outpatient (CLI) | payer MEDICARE ==
--- NOTE | 2023-05-27 14:56 | US ---
EXAMINATION TYPE: US pelvic complete DATE OF EXAM: 05/27/2023 COMPARISON: NONE CLINICAL INDICATION: Female, 67 years old with history of N81.4 UTEROVAGINAL PROLAPSE, UNSPECIFIED; p ending hysterectomy in the fall due to years of prolapse TECHNIQUE: TA. Transabdominal sonographic images of the pelvis were acquired. Date of LMP: 15+ years ago EXAM MEASUREMENTS: Uterus: 7.7 x 4.3 x 2.9 cm Endometrial Stripe: 0.5 cm Right Ovary: 2.1 x 1.7 x 1.6 cm Left Ovary: not seen 1. Uterus: Anteverted wnl 2. Endometrium: wnl 3. Right Ovary: simple appearing cyst = 1.4 x 1.8 x 1.4cm 4. Left Ovary: not seen due to atrophy and bowel gas 5. Bilateral Adnexa: wnl 6. Posterior cul-de-sac: wnl IMPRESSION: Simple cyst right ovary.
== END | disposition home or self-care (01) ==
LOC: RADUSWWP 14:09
PROVIDERS: ATTEND Obstetrics & Gynecology
DX: N81.4 Uterovaginal prolapse, unspecified (principal); N28.1 Cyst of kidney, acquired
CPT/HCPCS: 76856

== ENCOUNTER → 2023-07-30 | Outpatient (CLI) | payer MEDICARE ==
[2023-07-30 16:18] LABS: Basophils # (A) 0.06 X 10*3/uL (0.00-0.10); Basophils % (A) 1.2 %; Eosinophils # (A) 0.19 X 10*3/uL (0.04-0.35); Eosinophils % (A) 3.7 %; HGB 14.7 d/dL (12.0-15.0); Lymphocytes # (A) 1.91 X 10*3/uL (0.90-5.00); Lymphocytes % (A) 37.5 %; MCH 29.5 pg (27.0-32.0); MCHC 33.4 d/dL (32.0-37.0); MCV 88.2 FL (80.0-97.0); Mean Platelet Volume 9.7 FL (9.5-12.2); Monocytes # (A) 0.32 X 10*3/uL (0.20-1.00); Monocytes % (A) 6.3 %; NRBC Per 100 WBC 0 X 10*3/uL (0.00-0.01); Neutrophils # (A) 2.61 X 10*3/uL (1.80-7.70); Neutrophils % (A) 51.1 %; Platelet Count 198 X 10*3/uL (140-440); RBC 4.99 X 10*6/uL (4.10-5.20); RDW 13.2 % (11.5-14.5)
[2023-07-30 16:19] LABS: BUN/Creat Ratio 21.12 Ratio (12.00-20.00); Blood Urea Nitrogen 16.9 mg/dL (9.0-27.0); Chloride 104 mmol/L (96-109); Glucose 91 mg/dL (70-110); Potassium 4.3 mmol/L (3.5-5.5); Sodium 141 mmol/L (135-145)
[2023-07-30 16:20] LABS: Calcium 9.9 mg/dL (8.7-10.3)
== END | disposition home or self-care (01) ==
LOC: LABWHC1 09:07
PROVIDERS: ATTEND Obstetrics & Gynecology
DX: Z01.812 Encounter for preprocedural laboratory examination (principal); R00.1 Bradycardia, unspecified
CPT/HCPCS: 36415; 80048; 85025; 86850; 86900; 86901; 93005

== ENCOUNTER → 2023-09-15 | Outpatient (CLI) | payer MEDICARE ==
[2023-09-15 15:14] LABS: Basophils # (A) 0.06 X 10*3/uL (0.00-0.10); Basophils % (A) 1.3 %; Eosinophils # (A) 0.17 X 10*3/uL (0.04-0.35); Eosinophils % (A) 3.6 %; HCT 41.8 % (37.2-46.3); HGB 13.9 g/dL (12.0-15.0); Lymphocytes # (A) 1.38 X 10*3/uL (0.90-5.00); Lymphocytes % (A) 29.1 %; MCH 29.1 pg (27.0-32.0); MCHC 33.3 g/dL (32.0-37.0); MCV 87.6 FL (80.0-97.0); Mean Platelet Volume 8.9 FL (9.5-12.2); Monocytes # (A) 0.33 X 10*3/uL (0.20-1.00); NRBC Per 100 WBC 0 X 10*3/uL (0.00-0.01); Neutrophils # (A) 2.79 X 10*3/uL (1.80-7.70); Neutrophils % (A) 58.8 %; Platelet Count 185 X 10*3/uL (140-440); RBC 4.77 X 10*6/uL (4.10-5.20); RDW 13.3 % (11.5-14.5); WBC 4.74 X 10*3/uL (4.50-10.00)
[2023-09-15 15:27] LABS: BUN/Creat Ratio 29.38 Ratio (12.00-20.00); Blood Urea Nitrogen 23.5 mg/dL (9.0-27.0); Calcium 9.7 mg/dL (8.7-10.3); Carbon Dioxide 25.6 mmol/L (21.6-31.8); Chloride 106 mmol/L (96-109); Glucose 95 mg/dL (70-110); Potassium 4.5 mmol/L (3.5-5.5); Sodium 142 mmol/L (135-145)
== END | disposition home or self-care (01) ==
LOC: LABWHC1 10:06
PROVIDERS: ATTEND Obstetrics & Gynecology
DX: Z01.812 Encounter for preprocedural laboratory examination (principal)
CPT/HCPCS: 36415; 80048; 85025; 86850; 86900; 86901

== ENCOUNTER 2023-09-25 05:32 | Day surgery (SDC) | payer MEDICARE ==
--- NOTE | 2023-09-24 15:47 | P.HPOB ---
History of Present Illness H&P Date: 09/24/23 Chief Complaint: Uterine prolapse with cystocele This is a 67 y.o. female, 4, para 3, who presents for total vaginal hysterectomy with anterior vaginal colporrhaphy, possible total abdominal hysterectomy with bilateral salpingooophorectomy, due to uterine prolapse with cystocele and LYN I. She complains of pelvic pain and pressure with some incontinence. She also gets frequent urinary tract infections. She has been evaluated by Dr. Long who did not recommend a sling. OB Hx: History of 3 vaginal deliveries. [employer] Staff [employer] Employment Hx: No history of STDs. History of ASCUS with neg HR HPV on her pap. Social Hx: . Works at [employer]. Review of Systems Constitutional: Reports night sweats (rare), Denies chills, Denies fever Eyes: denies blurred vision, denies pain Ears, nose, mouth and throat: Denies headache, Denies sore throat Cardiovascular: Denies chest pain, Denies shortness of breath Respiratory: Denies cough Gastrointestinal: Denies abdominal pain, Denies diarrhea, Denies nausea, Denies vomiting Genitourinary: Reports pelvic pain, Reports prolapse symptoms, Reports stress incontinence, Reports urgency, Reports urinary frequency Menstruation: Reports postmenopausal Musculoskeletal: Reports low back pain, Reports myalgias Integumentary: Denies pruritus, Denies rash Neurological: Denies numbness, Denies weakness Psychiatric: Reports anxiety, Denies depression Endocrine: Denies fatigue, Denies weight change Past Medical History Past Medical History: Deep Vein Thrombosis (DVT), Hyperlipidemia, Thyroid Disorder, Vascular Disorder Additional Past Medical History / Comment(s): varicose veins, kidney stones,diverticulitis, genetic predisposition to developing blood clots- hyperhomocysteinemia, "superficial" Lt. leg blood clot at age 31, current tx. for UTI-Dr. Locke prescribed antibiotics History of Any Multi-Drug Resistant Organisms: None Reported Past Surgical History: Hernia Repair, Joint Replacement Additional Past Surgical History / Comment(s): lithotripsy w/ stent, lesly knee arthroplasty, colonoscopy, D & C, bilat. cataract removal Past Anesthesia/Blood Transfusion Reactions: No Reported Reaction, Family History of Problems w/ Anesthesia Additional Past Anesthesia/Blood Transfusion Reaction / Comment(s): mom very slow to wake up Past Psychological History: Anxiety Smoking Status: Never smoker Past Alcohol Use History: Occasional Past Drug Use History: None Reported - Past Family History Mother Family Medical History: Vascular Disorder Additional Family Medical History / Comment(s): mother & sister also have h yperhomocysteinemia - no hx. of DVT or PE Father Family Medical History: Cancer Medications and Allergies Home Medications Medication Instructions Recorded Confirmed Type Multivitamins, Thera [Multivitamin 1 tab PO DAILY 09/18/18 09/17/23 History (formulary)] Fiber Caplets(Unk) 1 tab PO DAILY 03/13/23 09/17/23 History Greentea Extract (Unk) 1 tab PO DAILY 03/13/23 09/17/23 History Methyl Folic(Unk) 1 tab PO DAILY 03/13/23 09/17/23 History Milk Thistle Extract(Unk) 1 tab PO DAILY 03/13/23 09/17/23 History Ezetimibe [Zetia] 10 mg PO HS 07/30/23 09/17/23 History Levothyroxine Sodium [Synthroid] 112 mcg PO QAM 09/17/23 09/17/23 History Allergies Allergy/AdvReac Type Severity Reaction Status Date / Time adhesive tape Allergy red skin, Verified 09/17/23 15:25 blisters ibuprofen Allergy Swelling Verified 09/17/23 15:25 Sulfa (Sulfonamide Allergy Swelling Verified 09/17/23 15:25 Antibiotics) iron AdvReac Abdominal Verified 09/17/23 15:25 Pain Exam Osteopathic Statement: *. No significant issues noted on an osteopathic structural exam other than those noted in the History and Physical/Consult. HEENT: within normal limits Heart: regular rate and rhythm Lungs: clear to auscultation bilaterally Abdomen: soft, non-tender Pelvic: uterus anteverted, non-tender, grade 2 uterine prolapse, grade 2-3 cystocele, no adnexal masses or tenderness Extremities: neg. Saul's Results Pelvic ultrasound showed uterus 7.7 x 4.3 x 2.9 cm, with endometrium 0.5 cm, simple right ovarian cyst, 1.8 cm, left ovary not seen due to overlying bowel gas. Assessment and Plan (1) Cystocele with uterine prolapse Status: Acute Code(s): N81.4 - UTEROVAGINAL PROLAPSE, UNSPECIFIED SNOMED Code(s): 4681592488 (2) LYN I (cervical intraepithelial neoplasia I) Status: Acute Code(s): N87.0 - MILD CERVICAL DYSPLASIA SNOMED Code(s): 470426832 Plan: Proceed with total vaginal hysterectomy with anterior vaginal colporrhaphy, possible total abdominal hysterectomy with bilateral salpingooophorectomy.
[2023-09-25] MEDS ORDERED: DEXAMETHASONE SOD PHOSPHATE 4 MG/ML 1 ML VIAL IV ONE (06:13)
[2023-09-25] MEDS ORDERED: LACTATED RINGERS 1,000 ML IV SCH (06:13)
[2023-09-25] MEDS ORDERED: ONDANSETRON 4 MG/2 ML VIAL IVP ONE ×2 (06:13→06:55)
[2023-09-25] MEDS ORDERED: LIDOCAINE 1% (10MG/ML) FOR IV START INTRADERMA PRN (06:13)
[2023-09-25] MEDS ORDERED: MIDAZOLAM 2 MG/2 ML VIAL IVP ONE (06:53)
[2023-09-25] MEDS ORDERED: DEXAMETHASONE SOD PHOSPHATE 4 MG/ML 1 ML VIAL IVP ONE (06:55)
[2023-09-25] MEDS ORDERED: MIDAZOLAM 2 MG/2 ML VIAL IV PRN (07:00)
[2023-09-25] MEDS ORDERED: HYDROmorphone 0.5 MG/0.5 ML SYRINGE IVP PRN (07:00)
[2023-09-25] MEDS ORDERED: NEOSTIGMINE 1 MG/ML 10 ML VIAL ONE (07:16)
[2023-09-25] MEDS ORDERED: SUCCINYLCHOLINE CHLORIDE 200 MG/10 ML VIAL IV ONE (07:16)
[2023-09-25] MEDS ORDERED: PROPOFOL 10 MG/ML 20 ML VIAL IV ONE (07:16)
[2023-09-25] MEDS ORDERED: ePHEDrine 50 MG/ML 1 ML VIAL ONE (07:16)
[2023-09-25] MEDS ORDERED: LIDOCAINE 1% INJ 10MG/ML (20 ML MDV) ONE (07:16)
[2023-09-25] MEDS ORDERED: ROCURONIUM 10 MG/ML (5 ML VIAL) IV ONE (07:16)
[2023-09-25] MEDS ORDERED: fentaNYL (PF) 50 MCG/ML 2 ML AMP ONE (07:16)
[2023-09-25] MEDS ORDERED: HYDROmorphone (PF) 1 MG/ML ONE (07:16)
[2023-09-25] MEDS ORDERED: MORPHINE SULFATE (PF) 0.3 MG/0.3 ML SYR ONE (07:16)
[2023-09-25] MEDS ORDERED: GLYCOPYRROLATE 0.2 MG/ML 2 ML VIAL ONE (07:16)
--- NOTE | 2023-09-25 07:30 | P.ANPRN ---
Procedure Note - Anesthesia - Epidural/Spinal Spinal Time Out Performed: Yes Date of Procedure: 09/25/23 Procedure Start Time: 06:53 Procedure Stop Time: 07:00 Location of Patient: PreOp Indication: Acute Post-Operative Pain, Analgesia, Requested by Surgeon Sedation Type: Sedate with meaningful contact maintained Preparation: Sterile Prep Position: Sitting Catheter: None Needle Guage: 22 Injectate: Duramorph 300 microgram+Fentanyl 25microgram Blood Aspirated: No Pain Paresthesia on Injection Noted: No Events: Uneventful and Well Tolerated
[2023-09-25] MEDS ORDERED: BACITRACIN ZINC 500 UNIT/GM OINT 28.4 GM TUBE TOPICAL ONE ×2 (07:57→08:30)
--- NOTE | 2023-09-25 08:44 | P.OP ---
Date of Procedure: 09/25/23 Preoperative Diagnosis: 1. Uterine prolapse with cystocele. 2. Urinary incontinence. 3. Recurrent urinary tract infections. Postoperative Diagnosis: Same Procedure(s) Performed: Total vaginal hysterectomy with anterior vaginal colporrhaphy Anesthesia: GETA, spinal (Duramorph with fentanyl) Surgeon: Genesis Locke Hand Coremaker #1: Loki Walton Estimated Blood Loss (ml): 25 Pathology: other (Uterus with cervix, vaginal mucosa) Condition: stable Disposition: floor Indications for Procedure: This is a 67 y.o. female, 4, para 3, who presents for total vaginal hysterectomy with anterior vaginal colporrhaphy, possible total abdominal hysterectomy with bilateral salpingooophorectomy, due to uterine prolapse with cystocele and LYN I. She complains of pelvic pain and pressure with some incontinence. She also gets frequent urinary tract infections. She has been evaluated by Dr. Long who did not recommend a sling. Operative Findings: Grade 2-3 cystocele is noted. Grade 2 uterine prolapse is noted. Neither tubes or ovaries are visualized. Normal-sized uterus is noted. Vaginal atrophy is noted. Description of Procedure: The patient is taken the operating room where she is placed in the dorsal lithotomy position. She is prepped and draped in the normal sterile fashion. Next a weighted speculum was placed in the patient's vagina and a right angle retractor was used to visualize the cervix. The anterior lip of the cervix is grasped with a single-tooth tenaculum. Next the cervix was circumferentially injected with one amp of epinephrine to 150 mL of normal saline. Next the cervix was circumscribed with a scalpel. The vaginal mucosa was pushed away from the cervix with a sponge. Next the uterosacral ligaments are clamped on either side with a Rianna clamp, cut with Naidu scissors, and then sutured with 0 Vicryl suture in a Rianna transfixion stitch and then held on either side with a straight hemostat. Next the posterior peritoneal reflection was identified and entered sharply with Naidu scissors. The edges of the vaginal mucosa was then tagged with 0 Vicryl suture and held with a curved hemostat for identification. Next a longbilled weighted speculum was placed through the posterior peritoneal reflection. Next the cardinal ligaments were clamped on either side with Rianna clamps, cut with Naidu scissors, and then sutured with 0 Vicryl suture in Rianna transfixion stitches and cut. Next the vesicouterine peritoneum reflection is identified and entered sharply with Metzenbaum scissors. A right angle bladder retractor is then used to retract the bladder. The uterine arteries are clamped on either side with Rianna clamps, cut with Naidu scissors, and then sutured with 0 Vicryl suture in Rianna transfixion stitches. The round ligament is also c lamped on either side with a Rianna clamp, cut with Naidu scissors, and sutured with 0 Vicryl suture in Rianna transfixion stitches. Next the uterine ovarian ligament and tube were clamped on either side with a Rianna clamp, cut with Naidu scissors, and then sutured with 0 Vicryl suture in a [id number] stitch, flashed, and then free tied with another suture of 0 Vicryl suture. These pedicles were held with a straight Yordy for identification. The uterus is removed from the field. Excellent hemostasis is noted. Next the peritoneum is closed with 0 Vicryl suture in a pursestring fashion incorporating all the held ligaments. Again neither ovary was visualized prior to closing the vaginal cuff area. Next the uterine ovarian ligaments are tied together in the middle and cut. Next attention was turned to the cystocele repair. The edges of the vaginal mucosa are held with 2 Allis clamps. Next injection of the same epinephrine solution is injected underneath the mucosa upwards towards the urethra. Metzenbaum scissors were used to dissect underneath the vaginal mucosa and cut along the way up to just below the urethra. Sharp and blunt dissection are used to dissect the bladder away from the vaginal mucosa. Once the bladder is freed, the cystocele is reduced with 0 Vicryl suture in [id number] stitches on either side of the cystocele. Next the edges of the vaginal mucosa are trimmed with Metzenbaum scissors. Next the vaginal mucosa is sutured with 0 Vicryl suture in a running locked fashion incorporating the vaginal cuff. The uterosacral ligaments were also tied together in the midline prior to completely closing the vaginal cuff. Excellent hemostasis is noted. The Melendez catheter is inserted and clear urine is noted. Next the vagina is packed with one-inch iodoform gauze with bacitracin ointment. All sponge and needle counts are correct and the patient is then taken to recovery room in stable condition.
[2023-09-25 08:59] VITALS: RESP 16
[2023-09-25] MEDS ORDERED: SIMETHICONE 80 MG CHEWABLE PO PRN (09:30)
[2023-09-25] MEDS ORDERED: ONDANSETRON 4 MG/2 ML VIAL IVP PRN (09:30)
[2023-09-25] MEDS ORDERED: ZOLPIDEM 5 MG TAB PO PRN (09:30)
[2023-09-25] MEDS ORDERED: diphenhydrAMINE 50 MG/ML 1 ML VIAL IVP PRN (09:30)
[2023-09-25] MEDS ORDERED: METOCLOPRAMIDE 5 MG/ML 2 ML VIAL IVP PRN (09:30)
[2023-09-25] MEDS ORDERED: ACETAMINOPHEN IV (For NPO) 1,000 MG in EMPTY BAG 1 BAG IVPB ONE (10:00)
[2023-09-25] MEDS: LEVOTHYROXINE 112 MCG TAB PO SCH (10:38)
[2023-09-25] MEDS: SENNOSIDES-DOCUSATE SODIUM 1 EACH TAB PO SCH (10:53)
[2023-09-25] MEDS: CEPHALEXIN 500 MG CAP PO SCH ×2 (12:51→19:56)
[2023-09-25] MEDS ORDERED: EZETIMIBE 10 MG TAB PO SCH (21:00)
[2023-09-26] MEDS: SENNOSIDES-DOCUSATE SODIUM 1 EACH TAB PO SCH ×2 (00:58→08:54)
[2023-09-26] MEDS: LEVOTHYROXINE 112 MCG TAB PO SCH (06:25)
[2023-09-26] MEDS: CEPHALEXIN 500 MG CAP PO SCH (06:59)
[2023-09-26 07:17] LABS: Basophils % (A) 0 %; Eosinophils # (A) 0.2 k/uL (0-0.7); Eosinophils % (A) 2 %; HCT 37.7 % (34.0-46.0); HGB 12.7 gm/dL (11.4-16.0); Lymphocytes # (A) 1.3 k/uL (1.0-4.8); Lymphocytes % (A) 14 %; MCH 29.7 pg (25.0-35.0); MCHC 33.8 g/dL (31.0-37.0); Mean Platelet Volume 6.9; Monocytes # (A) 0.3 k/uL (0-1.0); Monocytes % (A) 3 %; Neutrophils # (A) 7.3 k/uL (1.3-7.7); Neutrophils % (A) 79 %; Platelet Count 288 k/uL (150-450); RBC 4.28 m/uL (3.80-5.40); RDW 12.9 % (11.5-15.5); WBC 9.3 k/uL (3.8-10.6)
[2023-09-26] MEDS ORDERED: ACETAMINOPHEN TAB 325 MG TAB PO PRN (07:44)
--- NOTE | 2023-09-26 08:52 | P.DS ---
Providers Date of admission: 09/25/2023 Expected date of discharge: 09/26/23 Attending physician: Genesis Locke Primary care physician: Gaudencio Ojeda - Discharge Diagnosis(es) (1) Cystocele with uterine prolapse Current Visit: No Status: Acute (2) LYN I (cervical intraepithelial neoplasia I) Current Visit: No Status: Acute Hospital Course: This is a 67-year-old female who underwent a total vaginal hysterectomy with anterior vaginal colporrhaphy on 09/25/2023. Postoperatively she has done well. Her pain has been minimal. She is not currently taking anything for pain. Bleeding has been minimal. She has urinated. She is passing flatus but no bowel movement yet. Vital signs are stable. Abdomen is soft with positive bowel sounds 4. Evelia-pad shows very scant serosanguineous discharge Extremities show negative Homans. Impression is status post total vaginal hysterectomy with anterior vaginal colporrhaphy postoperative day #1. Plan is to discharge home today. Routine postoperative instructions are given. She is advised to follow up in the office in approximately 1 week for a postoperative check. She is advised to call the office if she has any further questions or concerns prior to her appointment time. She may take [id number] Tylenol if needed for pain. She will continue taking stool softeners until regular bowel movements occur. Procedures: Total vaginal hysterectomy with anterior vaginal colporrhaphy on 09/25/2023 Patient Condition at Discharge: Stable Plan - Discharge Summary Discharge Rx Participant: Yes New Discharge Prescriptions: No Action Multivitamins, Thera [Multivitamin (formulary)] 1 tab PO DAILY Greentea Extract (Unk) 1 tab PO DAILY Ezetimibe [Zetia] 10 mg PO HS Levothyroxine Sodium [Synthroid] 112 mcg PO QAM Milk Thistle Extract(Unk) 1 tab PO DAILY Methyl Folic(Unk) 1 tab PO DAILY Fiber Caplets(Unk) 1 tab PO DAILY Cephalexin [Keflex] 500 mg PO QID Discharge Medication List Multivitamins, Thera [Multivitamin (formulary)] 1 tab PO DAILY 09/18/18 [History] Fiber Caplets(Unk) 1 tab PO DAILY 03/13/23 [History] Greentea Extract (Unk) 1 tab PO DAILY 03/13/23 [History] Methyl Folic(Unk) 1 tab PO DAILY 03/13/23 [History] Milk Thistle Extract(Unk) 1 tab PO DAILY 03/13/23 [History] Ezetimibe [Zetia] 10 mg PO HS 07/30/23 [History] Levothyroxine Sodium [Synthroid] 112 mcg PO QAM 09/17/23 [History] Cephalexin [Keflex] 500 mg PO QID 09/25/23 [History] Follow up Appointment(s)/Referral(s): Genesis Locke DO [Doctor of Osteopathic Medicine] - 1 Week Activity/Diet/Wound Care/Special Instructions: Activity as tolerated. Diet as tolerated. May shower, but no tub baths for 1 week. No intercourse for 6 weeks. No heavy lifting, bending, repetitive motions. Discharge Disposition: HOME SELF-CARE
[2023-09-26 09:06] VITALS: BP 153/75; PULSE 73; TEMP 97.7
--- NOTE | 2023-09-26 11:07 | P.PN ---
Progress Note - Text 09/26/23 627am 67-year-old female status post vaginal hysterectomy with spinal Duramorph. Patient seen and evaluated for postop pain control, patient is a VAS of 0 with no complains of nausea vomiting or pruritus.
== END 2023-09-26 10:00 | disposition home or self-care (01) ==
LOC: OR 05:32 → 4FBP 08:50 → OR 09-26 10:00
PROVIDERS: ATTEND Obstetrics & Gynecology
DX: N81.4 Uterovaginal prolapse, unspecified (principal); N84.0 Polyp of corpus uteri; E78.5 Hyperlipidemia, unspecified; D25.1 Intramural leiomyoma of uterus; N87.0 Mild cervical dysplasia; F41.9 Anxiety disorder, unspecified; F10.90 Alcohol use, unspecified, uncomplicated; Z79.890 Hormone replacement therapy; Z86.718 Personal history of other venous thrombosis and embolism; Z87.440 Personal history of urinary (tract) infections; Z87.442 Personal history of urinary calculi; Z88.1 Allergy status to other antibiotic agents; Z88.2 Allergy status to sulfonamides; Z79.899 Other long term (current) drug therapy
CPT/HCPCS: 85025; 88307; 58260; 57240; J2250; J0171; J1100; J0690; J2405; J0131

== ENCOUNTER → 2024-09-02 | Outpatient (CLI) | payer MEDICARE | END | disposition home or self-care (01) | LOC: LABPAT 07:40 | PROVIDERS: ATTEND Internal Medicine | DX: I82.409 Acute embolism and thrombosis of unspecified deep veins of unspecified lower extremity (principal); Z13.6 Encounter for screening for cardiovascular disorders; E06.3 Autoimmune thyroiditis; E78.00 Pure hypercholesterolemia, unspecified; E55.9 Vitamin D deficiency, unspecified | CPT/HCPCS: 83090 ==

== ENCOUNTER → 2024-09-02 | Outpatient (CLI) | payer MEDICARE ==
[2024-09-02 16:26] LABS: Chol/HDL Ratio 4.52 Ratio; LDL Cholesterol,Calculated 119.4 mg/dL (0.0-131.0); T4, Free (Free Thyroxine) 1.14 ng/dL (0.80-1.80)
[2024-09-02 16:50] LABS: ALT 26 U/L (8-44); AST 31 U/L (13-35); Albumin 4.2 g/dL (3.8-4.9); Albumin/Globulin Ratio 1.83 Ratio (1.60-3.17); Alkaline Phosphatase 82 U/L (41-126); Blood Urea Nitrogen 24.4 mg/dL (9.0-27.0); Calcium 9.6 mg/dL (8.7-10.3); Carbon Dioxide 24.1 mmol/L (21.6-31.8); Chloride 106 mmol/L (96-109); Globulin 2.3 g/dL (1.6-3.3); Glucose 91 mg/dL (70-110); Potassium 4.4 mmol/L (3.5-5.5); Sodium 141 mmol/L (135-145); Total Bilirubin 0.4 mg/dL (0.3-1.2); Total Protein 6.5 g/dL (6.2-8.2)
== END | disposition home or self-care (01) ==
LOC: LABPAT 07:42
PROVIDERS: ATTEND Surgery
DX: Z01.818 Encounter for other preprocedural examination (principal); K40.90 Unilateral inguinal hernia, without obstruction or gangrene, not specified as recurrent
CPT/HCPCS: 80053; 80061; 82306; 83090; 84439; 84443; 85025; 86850; 86900; 86901; 93005

== ENCOUNTER → 2024-09-03 | Outpatient (CLI) | payer MEDICARE ==
[2024-09-03 20:17] LABS: Basophils # (A) 0.07 X 10*3/uL (0.00-0.10); Basophils % (A) 1.1 %; Eosinophils % (A) 4.9 %; HCT 42.6 % (37.2-46.3); HGB 14.1 g/dL (12.0-15.0); Lymphocytes # (A) 1.68 X 10*3/uL (0.90-5.00); Lymphocytes % (A) 27.2 %; MCH 28.8 pg (27.0-32.0); MCHC 33.1 g/dL (32.0-37.0); MCV 87.1 FL (80.0-97.0); Mean Platelet Volume 9.5 FL (9.5-12.2); Monocytes # (A) 0.39 X 10*3/uL (0.20-1.00); Monocytes % (A) 6.3 %; NRBC Per 100 WBC 0 X 10*3/uL (0.00-0.01); Neutrophils # (A) 3.72 X 10*3/uL (1.80-7.70); Neutrophils % (A) 60.2 %; Platelet Count 226 X 10*3/uL (140-440); RBC 4.89 X 10*6/uL (4.10-5.20); RDW 13.1 % (11.5-14.5); WBC 6.18 X 10*3/uL (4.50-10.00)
== END | disposition home or self-care (01) ==
LOC: LABPAT 12:15
PROVIDERS: ATTEND Surgery
DX: K40.90 Unilateral inguinal hernia, without obstruction or gangrene, not specified as recurrent (principal)
CPT/HCPCS: 85025

== ENCOUNTER 2024-09-10 06:18 | Day surgery (SDC) | payer MEDICARE ==
[2024-09-08 08:42] VITALS: BMI 29.3
--- NOTE | 2024-09-09 17:36 | P.GSHP ---
History of Present Illness H&P Date: 09/09/24 Chief Complaint: Right inguinal hernia 68-year-old female seen in the office in June. Patient has complaints of a hernia right groin. Enlarging over time. It is often sore. She had a CAT scan performed last January which showed a right sided inguinal hernia likely indirect or femoral in nature. History of previous left inguinal hernia repair in the past. Past Medical History Past Medical History: Asthma, Blood Disorder, Deep Vein Thrombosis (DVT), Hearing Disorder / Deafness, Hyperlipidemia, Skin Disorder, Thyroid Disorder, Vascular Disorder Additional Past Medical History / Comment(s): varicose veins, kidney stones, diverticulitis, genetic predisposition to developing blood clots- hyperhomocysteinemia. Seasonal allergies. Occasional Seasonal asthma. Arthritis. Occasional rash. Hx bone infection in rt foot. History of Any Multi-Drug Resistant Organisms: None Reported Past Surgical History: Hernia Repair, Joint Replacement Additional Past Surgical History / Comment(s): lithotripsy, lesly knee replaced, colonoscopy D & C. bilat cataract surgery. Hernia repair lt side. partial hysterectomy. Past Anesthesia/Blood Transfusion Reactions: Family History of Problems w/ Anesthesia Additional Past Anesthesia/Blood Transfusion Reaction / Comment(s): mom and brother very slow to wake up. No hx of blood transfusion to date. Smoking Status: Never smoker - Past Family History Mother Family Medical History: Vascular Disorder Additional Family Medical History / Comment(s): condition-Pre disposed to bloot clots. Father Family Medical History: Cancer Additional Family Medical History / Comment(s): Liver cancer Sister(s) Additional Family Medical History / Comment(s): Condition-pre disposed to blood clots. Medications and Allergies Home Medications Medication Instructions Recorded Confirmed Type Multivitamins, Thera [Multivitamin 1 tab PO DAILY 09/18/18 09/08/24 History (formulary)] Fiber Caplets(Unk) 2 tab PO DAILY 03/13/23 09/08/24 History Methyl Folic(Unk) 1 tab PO DAILY 03/13/23 09/08/24 History Milk Thistle Extract(Unk) 1 tab PO DAILY 03/13/23 09/08/24 History Ezetimibe [Zetia] 10 mg PO HS 07/30/23 09/08/24 History Levothyroxine Sodium [Synthroid] 112 mcg PO QAM 09/17/23 09/08/24 History Cholecalciferol [Vitamin D3 (25 25 mcg PO DAILY 09/08/24 09/08/24 History Mcg = 1000 Iu)] Lutein 20 mg PO QAM 09/08/24 09/08/24 History Allergies Allergy/AdvReac Type Severity Reaction Status Date / Time adhesive tape Allergy red skin, Verified 09/08/24 08:26 blisters ibuprofen Allergy Swelling Verified 09/08/24 08:26 Sulfa (Sulfonamide Allergy Swelling Verified 09/08/24 08:26 Antibiotics) iron AdvReac Abdominal Verified 09/08/24 08:26 Pain Surgical - Exam Physical exam: General: Well-developed, well-nourished HEENT: Normocephalic, sclerae nonicteric Abdomen: Nontender, nondistended, reducible right inguinal hernia Extremities: No edema Neuro: Alert and oriented Assessment and Plan (1) Right inguinal hernia Narrative/Plan: 68-year-old female with right inguinal hernia. Will proceed with laparoscopic da Ramos assisted repair right inguinal hernia with mesh, possible open tomorrow. Risks of bleeding, infection, recurrence, bladder and bowel injury, numbness, nerve injury, conversion to an open procedure were discussed with the patient. The patient understands and wishes to proceed. Status: Acute Code(s): K40.90 - UNIL INGUINAL HERNIA, W/O OBST OR GANGR, NOT SPCF RECUR SNOMED Code(s): 702123167
[~2024-09-10 06:18] MED LIST changes: -DEXAMETHASONE SOD PHOSPHATE 4 MG/ML 1 ML VIAL IV ONE; -LACTATED RINGERS 1,000 ML IV SCH; -ONDANSETRON 4 MG/2 ML VIAL IVP ONE
[2024-09-10] MEDS: IV FLUID CONTINUATION 1,000 ML IV ONE ×2 (06:59→10:22)
[2024-09-10] MEDS: ONDANSETRON 4 MG/2 ML VIAL IVP ONE (07:02)
[2024-09-10] MEDS: ACETAMINOPHEN TAB 500 MG TAB PO PRN (07:03)
[2024-09-10] MEDS: DEXAMETHASONE SOD PHOSPHATE 4 MG/ML 1 ML VIAL IV ONE (07:03)
[2024-09-10] MEDS: HEPARIN SODIUM,PORCINE 5,000 UNIT/ML 1 ML VIAL SQ PRN (07:03)
[2024-09-10] MEDS: LACTATED RINGERS 1,000 ML IV SCH (07:03)
[2024-09-10] MEDS ORDERED: SUCCINYLCHOLINE CHLORIDE 200 MG/10 ML VIAL IV ONE (07:20)
[2024-09-10] MEDS ORDERED: fentaNYL (PF) 50 MCG/ML 2 ML AMP ONE (07:20)
[2024-09-10] MEDS ORDERED: KETOROLAC 15 MG/ML 1 ML VIAL ONE (07:20)
[2024-09-10] MEDS ORDERED: PROPOFOL 10 MG/ML 20 ML VIAL IV ONE (07:20)
[2024-09-10] MEDS ORDERED: NEOSTIGMINE 1 MG/ML 10 ML VIAL ONE (07:20)
[2024-09-10] MEDS ORDERED: HYDROmorphone (PF) 1 MG/ML ONE (07:20)
[2024-09-10] MEDS ORDERED: ROCURONIUM 10 MG/ML (5 ML VIAL) IV ONE (07:20)
[2024-09-10] MEDS ORDERED: GLYCOPYRROLATE 0.2 MG/ML 2 ML VIAL ONE (07:20)
[2024-09-10] MEDS ORDERED: ePHEDrine 50 MG/ML 1 ML VIAL ONE (07:20)
[2024-09-10] MEDS ORDERED: MIDAZOLAM 2 MG/2 ML VIAL ONE (07:20)
[2024-09-10] MEDS ORDERED: LIDOCAINE 1% INJ 10MG/ML (20 ML MDV) ONE (07:20)
[2024-09-10] MEDS: LIDOCAINE 1%-EPI 1:100,000 20 ML VIAL SQ ONE ×2 (07:42)
[2024-09-10 09:15] VITALS: TEMP 97.3
--- NOTE | 2024-09-10 09:23 | P.OP ---
Date of Procedure: 09/10/24 Procedure(s) Performed: PREOPERATIVE DIAGNOSIS: Right inguinal hernia POSTOPERATIVE DIAGNOSIS: Same PROCEDURE: Laparoscopic repair right inguinal hernia with mesh da Ramos assisted, removal cord lipoma SURGEON: Dr. Dobbins ANESTHESIA: General EBL: 5 cc OPERATIVE PROCEDURE DETAILS: Patient was placed in the operating table in the supine position. The patient was placed under general anesthesia. The abdomen was prepped and draped in usual sterile fashion. A small curvilinear supraumbilical incision was made. The fascia was retracted anteriorly with Terry forceps. The Veress needle was inserted. The saline drop test was normal. Insufflation took place to 15 mmHg. An 8 mm trocar was placed into the peritoneal cavity. 2 additional 8 mm trochars were placed in the right upper quadrant and left upper quadrant under visualization. The robotic arms were then brought in and docked into place. The fenestrated bipolar was used in the left arm and the laparoscopic edgardo was utilized in the right arm. A 30 8 mm scope was used in the up position. The peritoneal cavity was inspected. The patient had an obvious indirect hernia moderate-sized on the right-hand side. The peritoneum was incised in a horizontal fashion cephalad to the internal inguinal ring. Following that careful dissection of the preperitoneal space took place. This took place using both electrocautery, sharp dissection but primarily blunt dissection. Visualization of the pubic tubercle and Isidoro's ligament took place medially. Full dissection took place laterally as well. The hernia sac was fully dissected. The patient did have an additional small defect in the direct space that was dissected and included with our repair. There was also a cord lipoma excised measuring 2 x 3 cm. Once we had adequate space the [id number] Progrip mesh was advanced into the preperitoneal space and flattened out appropriately to cover all potential hernia sites. The mesh was sutured medially to the folding edge of Isidoro's ligament. This was performed using a absorbable 3-0 V-Loc suture. The peritoneal defect was then closed using a absorbable 2-0 VLok suture. The hernia sac was incorporated into the peritoneal closure to help prevent future recurrence. The pneumoperitoneum was then evacuated. The skin of all 3 sites was closed using a 4-0 Monocryl stitch. Skin glue was then applied. TYPE OF MESH USED: ProGrip 15 x 10 cm LOCATION OF MESH: Preperitoneal FIXATION: Absorbable 3 oh V-Loc PREOPERATIVE DISCUSSION ON SMOKING CESSASTION: Yes PREOPERATIVE DISCUSSION ON MORBID OBESITY: Yes PREOPERATIVE DISCUSSION ON APPROPRIATE USE OF NARCOTIC USE: Yes PREOPERATIVE EDUCATION: Multi Modal, Smoking Cessation and Weight Loss with BMI over 35. DISPOSITION: Stable to recovery room
[2024-09-10 10:01] VITALS: RESP 16
[2024-09-10 11:00] VITALS: BP 132/73; PULSE 65
[2024-09-10] MEDS ORDERED: ACETAMINOPHEN TAB 325 MG TAB PO SCH (12:00)
[2024-09-10] MEDS ORDERED: IBUPROFEN 600 MG TAB PO SCH (12:00)
== END 2024-09-10 12:15 | disposition home or self-care (01) ==
LOC: OR 06:18
PROVIDERS: ATTEND Surgery
DX: K40.90 Unilateral inguinal hernia, without obstruction or gangrene, not specified as recurrent (principal); E78.5 Hyperlipidemia, unspecified; I73.9 Peripheral vascular disease, unspecified; J45.909 Unspecified asthma, uncomplicated; E07.9 Disorder of thyroid, unspecified; H91.90 Unspecified hearing loss, unspecified ear; M19.90 Unspecified osteoarthritis, unspecified site; L23.1 Allergic contact dermatitis due to adhesives; Z98.890 Other specified postprocedural states; Z87.442 Personal history of urinary calculi; Z86.718 Personal history of other venous thrombosis and embolism; Z80.0 Family history of malignant neoplasm of digestive organs; Z89.511 Acquired absence of right leg below knee; Z89.512 Acquired absence of left leg below knee; Z88.2 Allergy status to sulfonamides; Z88.1 Allergy status to other antibiotic agents; Z88.6 Allergy status to analgesic agent; Z79.890 Hormone replacement therapy; Z79.899 Other long term (current) drug therapy
CPT/HCPCS: 49650; C1781; J2250; J0330; J1644; J1100; J2710; J0690; J2405; J2003; J3010; J1171; J1885; J2704; J1596